=== PATIENT | male | born 1990 | race Caucasian/White ===

== ENCOUNTER 2019-11-29 13:00 | Emergency (ER) | payer SELFPAY ==
--- NOTE | 2019-11-29 13:08 | NUR ---
PATIENT LEFT WITHOUT BEING SEEN BY DR. GALVIN. NO FURTHER CARE PROVIDED FOR PATIENT.
== END 2019-11-29 13:08 | disposition left against medical advice (07) ==
LOC: MED 13:00
DX: Z53.21 Procedure and treatment not carried out due to patient leaving prior to being seen by health care provider (principal)

== ENCOUNTER 2019-11-30 10:01 | Inpatient (IN) | payer OTHER ==
[~2019-11-30] VITALS: Ht 180.3 cm; Wt 98.7 kg
[2019-11-30 10:10] VITALS: BP 162/92
[2019-11-30] MEDS ORDERED: NACL 0.9% 1,000 ML IV SCH (10:28)
--- NOTE | 2019-11-30 10:35 | NUR ---
C/O SUPRAPUBIC AND FLANK PAIN 06/30 WITH DYSURIA, CONSTIPATION, AND A COUPLE EPISODES OF NON-BLOODY VOMIT X TUESDAY. PT WAS REFERRED FROM URGENT CARE YESTERDAY FOR 2+ BLOOD IN URINE. PT REPORTS LAST BM 2 DAYS AGO. PT ADDS FEELING OF FREQUENCY BUT UNABLE TO ACTUALLY URINATE. BOWEL SOUNDS ACTIVE IN ALL 4 QUADRANTS. TENDER TO TOUCH IN SUPRAPUBIC AREA. DENIES SOB OR CP. PT ALERT AND AWAKE, HR TACHY AT 127, PT NON-DIAPHORETIC. PMH- DENIES
--- NOTE | 2019-11-30 10:35 | NUR ---
IV INSERTED AND LABS DRAWN BEDSIDE
--- NOTE | 2019-11-30 10:41 | NUR ---
XRAY AT BEDSIDE
--- NOTE | 2019-11-30 10:42 | NUR ---
LAB AT BEDSIDE FOR CULTURES
[2019-11-30] MEDS ORDERED: cefTRIAXone 500 MG VIAL ONE (10:45)
[2019-11-30] MEDS ORDERED: cefTRIAXone 1,000 MG VIAL ONE (10:46)
[2019-11-30 10:58] LABS: HEMATOCRIT 40.7 % (36-52); HEMOGLOBIN 13.6 g/dL (12.0-18.0); MEAN CORPUSCULAR HEMOGLOBIN 27 pg (27-31); MEAN CORPUSCULAR HGB CONC 34 g/dL (33-37); MEAN CORPUSCULAR VOLUME 81.8 fL (80-94); PLATELET COUNT (AUTO) 322 K/uL (140-450); RED BLOOD CELL COUNT(AUTO) 4.98 MIL/uL (4.20-6.10); WHITE BLOOD COUNT (AUTO) 20.1 K/uL (4.8-10.8)
--- NOTE | 2019-11-30 10:59 | NUR ---
ROCEPHIN IVBP STARTED
[2019-11-30 11:06] LABS: APPEARANCE,URINE CLOUDY (CLEAR); BILIRUBIN,URINE 1+ (NEGATIVE); BLOOD, URINE 3+ (NEGATIVE); COLOR,URINE DARK YELLOW (YELLOW); LEUKOCYTE ESTERASE ,URINE NEGATIVE (NEGATIVE); NITRITE, URINE NEGATIVE (NEGATIVE); UGLUCOSE NEGATIVE (NEGATIVE)
[2019-11-30 11:12] LABS: ALBUMIN 3.5 g/dL (3.4-5.0); CARBON DIOXIDE 28.7 mmol/L (21-32); CREATININE 0.9 mg/dL (0.7-1.3); TOTAL BILIRUBIN 1.5 mg/dL (0.0-1.0)
[2019-11-30 11:14] LABS: LYMPHOCYTES % (MANUAL) 9 % (20-46); MONOCYTES % (MANUAL) 6 % (5-12)
[2019-11-30 11:16] LABS: POTASSIUM 2.7 mmol/L (3.5-5.1)
[2019-11-30 11:19] LABS: HYALINE CASTS, URINE 0-10 /LPF (None Seen); WBC,URINE 0-5 /HPF (0-5)
[2019-11-30] MEDS ORDERED: MAG SULF 2000 MG/WATER PREMIX 50 ML IV ONE (11:30)
[2019-11-30] MEDS ORDERED: KCL 20 MEQ/WATER INJ PREMIX 100 ML IV ONE (11:30)
--- NOTE | 2019-11-30 11:42 | NUR ---
MAG JAYLIN STARTED
--- NOTE | 2019-11-30 11:52 | NUR ---
PT DISCONTINUED FROM MAGNESIUM FOR CT SCAN.
[2019-11-30] MEDS: NACL 0.9% 1,000 ML IV SCH (11:53)
[2019-11-30] MEDS ORDERED: ONDANSETRON 4 MG/2 ML VIAL IM/IVP PRN (11:55)
[2019-11-30] MEDS ORDERED: HYDROcodone/APAP 5/325 MG 1 TAB TAB PO PRN (11:55)
[2019-11-30] MEDS ORDERED: DOCUSATE SODIUM 100 MG GELCAP PO PRN (11:55)
[2019-11-30] MEDS ORDERED: MORPHINE SULFATE 2 MG/ML SYR IVP PRN (11:55)
[2019-11-30] MEDS ORDERED: ACETAMINOPHEN 325 MG TAB PO PRN (11:55)
--- NOTE | 2019-11-30 11:57 | NUR ---
PT RETURNED FROM CT
--- NOTE | 2019-11-30 12:17 | NUR ---
PAIN 6/10 PER PT, NADR
--- NOTE | 2019-11-30 12:17 | NUR ---
ORAL TEMP 101.6,DR CALDERA NOTIFIED
--- NOTE | 2019-11-30 12:22 | NUR ---
VERBAL ORDER FOR TYLENOL FROM DR CALDERA
[2019-11-30] MEDS ORDERED: ACETAMINOPHEN EXTRA STRENGTH 500 MG TAB PO PRN (12:25)
[2019-11-30 12:33] LABS: BARBITURATE, URINE NEG. ng/ml (NEG <=200); BENZODIAZEPINE, URINE NEG. ng/mL (NEG <=200); CANNABINOID, URINE POS. ng/mL (NEG <=50); COCAINE, URINE NEG. ng/mL (NEG <=300); OPIATE, URINE NEG. ng/mL (NEG <=2000); PHENCYCLIDINE SCREEN,URINE NEG. ng/mL (NEG <=25)
[2019-11-30 12:41] LABS: MAGNESIUM 2.3 mg/dL (1.8-2.4); PHOSPHORUS 2.5 mg/dL (2.5-4.9); PROTHROMBIN TIME 12.1 secs (10.8-13.4); THYROID STIMULATING HORMONE 0.53 uIU/mL (0.34-3.74)
--- NOTE | 2019-11-30 12:50 | NUR ---
Patient will be admitted to care of RENAN. Admited to TELE. Will go to [id number]. Belongings list completed. Report to PRINCESS MANNING. MAGNESIUM AND POTASSIUM RUNNING UPON ADMIT. TYLENOL ADMINISTERED PRIOR TO ADMIT FOR PTS FEVER PT HAS HIS PERSONAL BELONGINGS PT STATES HE WILL NOTIFY HIS OWN FAMILY AND PCP REGARDING ADMIT
[2019-11-30] MEDS ORDERED: POTASSIUM CHLORIDE 10 MEQ TABER PO SCH (13:00)
[2019-11-30] MEDS: metroNIDAZOLE 500 MG/NS PREMIX 100 ML IV SCH ×2 (13:29→21:03)
[2019-11-30 13:40] VITALS: BP 146/76
--- NOTE | 2019-11-30 13:42 | NUR ---
RECEIVED PATIENT FROM ED NURSE VIA EDY. AMBULATED TO THE ROOM. PATIENT IS AAOX4. RESPIRATIONS EVEN AND UNLABORED, ROOM AIR. VISIBLE CHEST RISE. ON TELE MONITORING. ABDOMEN SOFT AND NONTENDER. PATIENT C/O OF 4/10 SUPRAPUBIC PAIN AND FLANK PAIN. SKIN WARM AND INTACT. IV ON THE RIGHT HAND G 22 RUNNING KCI AT 68ML/HR. IV ON THE LEFT HAND G20 RUNNING MAGNESIUM. BOTH IV SITES ARE INTACT AND PATENT. PATIENT IS AMBULATORY. BED IN LOW POSITION. CALL LIGHT IS WITHIN REACH
--- NOTE | 2019-11-30 14:20 | NUR ---
GAVE LR BOLUS IN THE LEFT HAND IV. Addendum: 11/30/19 at 1654 by Princess Malia Espinosa RN PER MD TARANGO
[2019-11-30] MEDS ORDERED: KCL 20 MEQ/WATER INJ PREMIX 200 ML IV SCH (15:00)
[2019-11-30 16:00] VITALS: BP 145/91
[2019-11-30] MEDS ORDERED: POTASSIUM CHLORIDE 40 MEQ, LIDOCAINE 1% 25 MG in NACL 0.9% 250 ML IV SCH (16:30)
--- NOTE | 2019-11-30 16:49 | NUR ---
HANG KCI WITH LIDOCAINE FOR POTASSIUM LEVEL 2.7. EXPLAINED TO PATIENT INDICATIONS AND SIDE EFFECTS. PATIENT VERBALIZED UNDERSTANDING. WILL CONTINUE TO MONITOR. ANTOINETTE ABDALLA AT BEDSIDE
--- NOTE | 2019-11-30 16:50 | NUR ---
RECEIVED PATIENT FROM ED NURSE VIA [employer]. AMBULATED TO THE ROOM. PATIENT IS AAOX4. RESPIRATIONS EVEN AND UNLABORED, ROOM AIR. VISIBLE CHEST RISE. ON TELE MONITORING. ABDOMEN SOFT AND NONTENDER. PATIENT C/O OF 4/10 SUPRAPUBIC PAIN AND FLANK PAIN. SKIN WARM AND INTACT. IV ON THE RIGHT HAND G 22 RUNNING KCI AT 68ML/HR. IV ON THE LEFT HAND G20 RUNNING MAGNESIUM. BOTH IV SITES ARE INTACT AND PATENT. PATIENT IS AMBULATORY. BED IN LOW POSITION. CALL LIGHT IS WITHIN REACH. Addendum: 11/30/19 at 1653 by Princess Malia Espinosa RN WRONG TIME
--- NOTE | 2019-11-30 17:02 | NUR ---
PATIENT IS LAYING ON BED AT THIS TIME. DENIES PAIN. NO SIGNS OF DISTRESS NOTED. ANTOINETTE ABDALLA AT BEDSIDE
--- NOTE | 2019-11-30 18:24 | NUR ---
GIVEN ICE CHIPS ABOUT HALF OF THE STYROFOAM CUP. PATIENT IS AWARE THAT HE NEEDS BOWEL RESTED PER MD ORDER
--- NOTE | 2019-11-30 19:10 | NUR ---
ENDORSED PATIENT TO SUPERVISOR WHEEL SHOP NURSE. PATIENT IS IN STABLE CONDITION
[2019-11-30 19:16] LABS: ANION GAP 13.1 (8-16); CARBON DIOXIDE 27.2 mmol/L (21-32); CREATININE 0.7 mg/dL (0.7-1.3); POTASSIUM 3.3 mmol/L (3.5-5.1)
--- NOTE | 2019-11-30 19:30 | NUR ---
RECEIVED BEDSIDE REPORT FROM AM SHIFT RN FOR PT'S CONTINUITY OF CARE. PT IS AAOX4, WITH FAMILY MEMBERS AT BEDSIDE, AMBULATORY TO THE BATHROOM, IS ON ROOM AIR, ON TREE FELLER OPERATOR, HAS LEFT HAND 20 G SALINE LOCK, AND RIGHT HAND 22G WITH POTASSIUM IVF AT 68ML/HR, REPORTS TO HAVE SMALL AMOUNT OF BM WITH LIQUID CONSISTENCY, DENIES ANY PAIN, ONLY INTERMITTENT TOLERABLE PAIN. EXPLAINED TO PT THE PERINATAL EDUCATOR ROUTINE, PT VERBALIZED UNDERSTANDING. SAFETY MEASURES IN PLACE. PT'S NEEDS MET. WILL MONITOR PT THROUGHOUT SHIFT.
[2019-11-30 20:00] VITALS: BP 110/90
--- NOTE | 2019-11-30 21:03 | NUR ---
ADMINISTERED SCHEDULED IV ABX ORDERED. PT TEACHING GIVEN RE: MEDICATION AND SE. PT VERBALIZED UNDERSTANDING. STATES HE GETS INTERMITTENT MILD NAUSEA. REFUSED ANTI-NAUSEA MEDICATION. ENCOURAGED PT TO REPORT PAIN OR ANY N/V.
--- NOTE | 2019-11-30 23:30 | NUR ---
MADE ROUNDS. PT ASLEEP WITH NO SIGNS OF DISTRESS. WILL CONTINUE TO MONITOR PT.
[2019-12-01] VITALS: BP 144/92
--- NOTE | 2019-12-01 01:06 | NUR ---
MADE ROUNDS. PT ASLEEP WITH NO SIGNS OF DISTRESS. WILL CONTINUE TO MONITOR PT.
--- NOTE | 2019-12-01 03:30 | NUR ---
PT ASLEEP WITH NO SIGNS OF DISTRESS. WILL CONTINUE TO MONITOR PT.
[2019-12-01 04:00] VITALS: BP 151/93
[2019-12-01] MEDS: metroNIDAZOLE 500 MG/NS PREMIX 100 ML IV SCH ×3 (04:42→20:38)
[2019-12-01] MEDS: NACL 0.9% 1,000 ML IV SCH ×3 (04:42→20:38)
--- NOTE | 2019-12-01 04:45 | NUR ---
VS CHECKED AND CHARTED. ADMINISTERED SCHEDULED IVF AND IV ABX ORDERED. PT STATES GETS INTERMITTENT PAIN LASTING FOR 15 SECONDS AND GOES AWAY AFTER REPOSITIONING. PT'S NEEDS MET. WILL CONTINUE TO MONITOR PT.
[2019-12-01 06:07] LABS: T4 (THYROXINE) 9.6 ug/dL (4.5-12.0)
--- NOTE | 2019-12-01 06:30 | NUR ---
PT AWAKE. DENIES ANY PAIN AT THIS TIME. INFORMED PT REGARDING NPO STATUS, PT VERBALIZED UNDERSTANDING.
[2019-12-01 07:06] LABS: CHOL/HDL RATIO 4.9 (1-4.5)
--- NOTE | 2019-12-01 07:30 | NUR ---
RECEIVED REPORT FROM NIGHT NURSE, PT IS STABLE, AA0X4, RH 22G RUNNING NORMAL SALINE 60 ML/H, SAFETY MEASURES IN PLACE, INTRODUCE SELF, UPDATE WHITEBOARD, CALL LIGHT WITHIN REACH.
--- NOTE | 2019-12-01 07:30 | NUR ---
MD CHANGED PT'S DIET TO FULL LIQUID DIET. EXPLAINED TO PT NEW ORDER, AND PER PT, MD CAME IN AND INFORMED PT NO SX INDICATION FOR TODAY. ENDORSED PT TO AM SHIFT RN FOR PT'S CONTINUITY OF CARE.
[2019-12-01 08:00] VITALS: BP 145/89
--- NOTE | 2019-12-01 09:09 | NUR ---
PATIENT IS SCREENED AND CATEGORIZED MODERATE NUTRITION RISK. PATIENT WILL BE SEEN WITHIN 3-5 DAY OF ADMISSION. 12/02/2019-12/04/[address]
--- NOTE | 2019-12-01 10:00 | NUR ---
PT RESTING IN BED, PT IS STABLE, RESPIRATIONS ARE EVEN AND UNLABORED, FAMILY AT BEDSIDE, CALL LIGHT WITHIN REACH.
[2019-12-01 12:00] VITALS: BP 138/103
--- NOTE | 2019-12-01 12:00 | NUR ---
HANG ORDERED MEDICATION, EDUCATION GIVEN, PT VERBALIZE UNDERSTANDING, PT IS STABLE, RESPIRATIONS ARE EVEN AND UNLABORED, CALL LIGHT WITHIN REACH.
[2019-12-01 13:25] LABS: BASOPHILS % (AUTO) 0.3 % (0.0-2.0); EOSINOPHILS % (AUTO) 0.3 % (0.0-4.0); HEMATOCRIT 41.3 % (36-52); HEMOGLOBIN 13.6 g/dL (12.0-18.0); LYMPHOCYTES # (AUTO) 1.6 K/uL (2.0-11.5); LYMPHOCYTES % (AUTO) 13.1 % (20.5-51.1); MEAN CORPUSCULAR HEMOGLOBIN 27 pg (27-31); MEAN CORPUSCULAR HGB CONC 33 g/dL (33-37); MEAN CORPUSCULAR VOLUME 82.1 fL (80-94); MONOCYTES # (AUTO) 1.4 K/uL (0.8-1.0); MONOCYTES % (AUTO) 11.4 % (1.7-9.3); NEUTROPHILS % (AUTO) 74.9 % (42.2-75.2); PLATELET COUNT (AUTO) 313 K/uL (140-450); RED BLOOD CELL COUNT(AUTO) 5.03 MIL/uL (4.20-6.10); WHITE BLOOD COUNT (AUTO) 12.1 K/uL (4.8-10.8)
[2019-12-01 13:38] LABS: CARBON DIOXIDE 28.4 mmol/L (21-32); CREATININE 0.7 mg/dL (0.7-1.3); POTASSIUM 3.4 mmol/L (3.5-5.1)
--- NOTE | 2019-12-01 15:30 | NUR ---
PT IS RESTING IN BED, NO SIGNS OF DISTRESS NOTED, PT IS STABLE, CALL LIGHT WITHIN REACH.
[2019-12-01 16:00] VITALS: BP 156/101
[2019-12-01] MEDS ORDERED: POTASSIUM CHLORIDE 10 MEQ TABER PO SCH (16:17)
--- NOTE | 2019-12-01 19:31 | NUR ---
GAVE REPORT TO NIGHT NURSE, PT IS STABLE, NO SIGNS OF DISTRESS NOTED, CALL LIGHT WITHIN REACH.
[2019-12-01 20:00] VITALS: BP 165/52
[2019-12-01] MEDS ORDERED: CRUSHER, PILL MC ONE (20:18)
[2019-12-01] MEDS: amLODIPine 5 MG TAB PO SCH (20:35)
--- NOTE | 2019-12-01 20:40 | NUR ---
ADMINISTERED SCHEDULED PO AND IV ABX MEDICATIONS ORDERED. PT TOLERATED THEM WELL. PT'S NEEDS MET AT THIS TIME. WILL CONTINUE TO MONITOR PT.
--- NOTE | 2019-12-01 23:15 | NUR ---
PT AWAKE AND DENIES ANY PAIN. PT'S NEEDS MET AT THIS TIME.
[2019-12-02] VITALS: BP 152/95
--- NOTE | 2019-12-02 01:00 | NUR ---
MADE ROUNDS. PT LYING DOWN AWAKE, DENIES ANY PAIN AND NEEDS ARE MET. WILL CONTINUE TO MONITOR PT.
[2019-12-02 04:00] VITALS: BP 131/70
[2019-12-02] MEDS: metroNIDAZOLE 500 MG/NS PREMIX 100 ML IV SCH ×3 (04:45→20:34)
--- NOTE | 2019-12-02 04:45 | NUR ---
ADMINISTERED SCHEDULED IV ABX ORDERED. PT ASLEEP WITH NO SIGNS OF DISTRESS. WILL CONTINUE TO MONITOR PT.
--- NOTE | 2019-12-02 06:30 | NUR ---
PT LYING DOWN ASLEEP WITH NO SIGNS OF DISTRESS. WILL ENDORSE TO AM SHIFT RN FOR PT'S CONTINUITY OF CARE.
[2019-12-02 07:00] LABS: ANION GAP 10.7 (8-16); CARBON DIOXIDE 28.4 mmol/L (21-32); CREATININE 0.7 mg/dL (0.7-1.3); POTASSIUM 3.1 mmol/L (3.5-5.1)
--- NOTE | 2019-12-02 07:10 | NUR ---
RECEIVED REPORT FROM NIGHT NURSE, PT WAS ASLEEP BUT WOKE UP WHEN NURSES ENTERED HIS ROOM, PT IS AAOX4, INTRODUCE SELF, PT IS STABLE, RH22G RUNNING NS AT 100 ML/H, LH 20G SALINE LOCK, SAFETY MEASURES IN PLACE, CALL LIGHT WITHIN REACH.
[2019-12-02 07:39] LABS: BASOPHILS # (AUTO) 0.1 K/uL (0.00-0.22); BASOPHILS % (AUTO) 0.6 % (0.0-2.0); EOSINOPHILS # (AUTO) 0.1 K/uL (0-0.4); EOSINOPHILS % (AUTO) 1.5 % (0.0-4.0); HEMATOCRIT 39.6 % (36-52); LYMPHOCYTES # (AUTO) 1.7 K/uL (2.0-11.5); LYMPHOCYTES % (AUTO) 17.6 % (20.5-51.1); MEAN CORPUSCULAR HEMOGLOBIN 27 pg (27-31); MEAN CORPUSCULAR HGB CONC 33 g/dL (33-37); MEAN CORPUSCULAR VOLUME 83.2 fL (80-94); MONOCYTES # (AUTO) 1.1 K/uL (0.8-1.0); MONOCYTES % (AUTO) 11.9 % (1.7-9.3); NEUTROPHILS # (AUTO) 6.4 K/uL (1.8-7.7); NEUTROPHILS % (AUTO) 68.4 % (42.2-75.2); PLATELET COUNT (AUTO) 323 K/uL (140-450); RED BLOOD CELL COUNT(AUTO) 4.76 MIL/uL (4.20-6.10); RED CELL DISTRIBUTION WIDTH 13.8 % (11.6-13.7); WHITE BLOOD COUNT (AUTO) 9.4 K/uL (4.8-10.8)
[2019-12-02 08:00] VITALS: BP 134/80
[2019-12-02] MEDS: amLODIPine 5 MG TAB PO SCH (08:49)
--- NOTE | 2019-12-02 08:50 | NUR ---
GAVE PT ORDERED MEDIATION, EDUCATION GIVEN, PT TOLERATED WELL, PT IS STABLE, CALL LIGHT WITHIN REACH.
[2019-12-02] MEDS ORDERED: POTASSIUM CHLORIDE 40 MEQ, LIDOCAINE MPF 1% 25 MG in NACL 0.9% 250 ML IV SCH (10:00)
[2019-12-02] MEDS: NACL 0.9% 1,000 ML IV SCH (10:18)
--- NOTE | 2019-12-02 10:31 | NUR ---
HANG POTASSIUM, REMOVED RIGHT HAND IV IT WAS LEAKING, IV CANNULA INTACT, PT TOLERATED WELL. PT IS STABLE, FAMILY AT BEDSIDE, CALL LIGHT WITHIN REACH.
[2019-12-02 12:00] VITALS: BP 146/92
--- NOTE | 2019-12-02 12:30 | NUR ---
POTASSIUM STILL INFUSING AND UNABLE TO HANG OTHER MEDICATION. INFORM PT ABOUT THE WAIT, PT IS STABLE, CALL LIGHT WITHIN REACH.
--- NOTE | 2019-12-02 15:02 | NUR ---
PT SITTING IN BED AWAKE, ON HIS PHONE, NO SIGNS OF DISTRESS NOTED, CALL LIGHT WITHIN REACH.
--- NOTE | 2019-12-02 15:17 | NUR ---
DISCHARGE PLANNING: A 29 Y/O MALE PATIENT FROM HOME, WHO CAME IN DUE TO ABDOMINAL PAIN. NO PERTINENT MEDICAL HISTORY. INITIAL DIAGNOSIS OF SEPSIS AND UTI. CURRENT LABS INCLUDE WBC 9.4, H/H 13.0/39.6, NA/K 140/3.1. UDS POSITIVE FOR CANNABINOIDS. ON ROCEPHIN IV. BLOOD AND URINE C/S NORMAL. ID CONSULT WITH DR LAURENT FOR PELVIC ABSCESS. SURGICAL CONSULT WITH DR SANDERS FOR PELVIC ABSCESS. CHEST X RAY ON ADMISSION NEGATIVE. CT ABD/PELVIS SHOWED PROXIMAL SIGMOID COLITIS AND ADJACENT PELVIC ABSCESS, LOCALIZED CYSTITIS AND FATTY LIVER. DC PLAN TO HOME ONCE STABLE. Addendum: 12/03/19 at 0912 by Rylee Daniel CM RECEIVED AN ORDER FOR HIGHER LEVEL OF CARE FOR CT GUIDED DRAINGA Addendum: 12/03/19 at 0921 by Rylee Daniel CM CONT. CT GUIDED DRAINAGE OF PELVIC ABSCESS CONTACTED [facility] AT [phone], ABLE TO SPEAK TO [facility] REGARDING ORDER. HE STATED MIGUEL [phone] IS THE SENIOR UX DEVELOPER ASSIGNED TO THIS PATIENT. HE STATED HE WILL RELAY THE MESSAGE TO MIGUEL MARTINS. HE ALSO PROVIDED ME WITH THE FAX NUMBER [phone] TO SEND ORDER AND CLINICALS. ORDER AND CLINICALS FAXED TO THE PROVIDED NUMBER. CM TO FOLLOW UP. Addendum: 12/03/19 at 1014 by Rylee Daniel CM CONTACTED [facility] [phone], ABLE TO SPEAK TO MK REGARDING INQUIRY. HE STATED THEY DO NOT HAVE ANY BEDS AT THIS TIME BUT HE CAN TAKE PATIENT INFORMATION. HE ALSO PROVIDED ME FAX NUMBER [phone], TO SEND REFERRAL. [place] SENT. [place] [facility] [place] [facility] AND [facility]. [facility] WILL FOLLOW UP. Addendum: 12/03/19 at 1038 by Rylee Daniel CM PER CHARGE NURSE, PATIENT WENT AMA. [facility] AND [facility] MADE AWARE Addendum: 12/03/19 at 1040 by Rylee Daniel CM MIGUEL MARTINS AT [facility] MADE AWARE.
[2019-12-02 16:00] VITALS: BP 136/88
--- NOTE | 2019-12-02 19:14 | NUR ---
GAVE REPORT TO NIGHT NURSE FOR CONTINUITY OF CARE, PT STABLE.
--- NOTE | 2019-12-02 19:15 | NUR ---
RECEIVED PT ON BED, AAOX4, ABLE TO MAKE NEEDS KNOWN, DENIES ANY PAIN, TOLERATING SOFT DIET, IVF INFUSING WELL, PLAN OF CARE DISCUSSED, CALL LIGHT WITHIN REACH.
[2019-12-02 20:00] VITALS: BP 145/105
--- NOTE | 2019-12-02 20:35 | NUR ---
PT SITTING ON SIDE OF BED USING HIS CELLPHONE, DUE FLAGYL IVPB ADMINISTERED, ALL NEEDS ATTENDED.
--- NOTE | 2019-12-02 23:50 | NUR ---
PT WANTS TO TALKED TO RESIDENT ON DUTY, PT STATED PER DR LAURENT EARLIER THAT HE NEEDS TO BE TRANSFERRED TO ANOTHER HOSPITAL FOR DRAINAGE OF PELVIC ABSCESS, DR LANDRY TALKED TO PT, DR LANDRY WILL LET THE AM DOCTORS FOLLOW UP AM LAB RESULTS AND THEY WILL DISCUSS IT WITH DR LAURENT IN THE MORNING, PT VERBALIZED UNDERSTANDING.
[2019-12-03] VITALS: BP 144/89
[2019-12-03 04:00] VITALS: BP 122/82
--- NOTE | 2019-12-03 04:00 | NUR ---
PT SLEEPING, EASILY AROUSABLE, VITAL SIGNS STABLE, SB ON TELE WHEN SLEEPING, ASYMPTOMATIC, DENIES ANY PAIN, NO SOB NOTED, MONITORED CLOSELY.
[2019-12-03] MEDS: metroNIDAZOLE 500 MG/NS PREMIX 100 ML IV SCH (04:45)
[2019-12-03 06:24] LABS: BASOPHILS % (AUTO) 0.5 % (0.0-2.0); EOSINOPHILS # (AUTO) 0.2 K/uL (0-0.4); HEMATOCRIT 41.3 % (36-52); HEMOGLOBIN 13.5 g/dL (12.0-18.0); LYMPHOCYTES # (AUTO) 1.8 K/uL (2.0-11.5); LYMPHOCYTES % (AUTO) 21.5 % (20.5-51.1); MEAN CORPUSCULAR HEMOGLOBIN 27 pg (27-31); MEAN CORPUSCULAR HGB CONC 33 g/dL (33-37); MEAN CORPUSCULAR VOLUME 82.6 fL (80-94); MONOCYTES # (AUTO) 0.9 K/uL (0.8-1.0); MONOCYTES % (AUTO) 10.5 % (1.7-9.3); NEUTROPHILS # (AUTO) 5.3 K/uL (1.8-7.7); NEUTROPHILS % (AUTO) 64.5 % (42.2-75.2); PLATELET COUNT (AUTO) 354 K/uL (140-450); RED BLOOD CELL COUNT(AUTO) 5.01 MIL/uL (4.20-6.10); RED CELL DISTRIBUTION WIDTH 14.1 % (11.6-13.7); WHITE BLOOD COUNT (AUTO) 8.2 K/uL (4.8-10.8)
[2019-12-03] MEDS: NACL 0.9% 1,000 ML IV SCH (06:46)
[2019-12-03 06:55] LABS: ANION GAP 11.3 (8-16); CARBON DIOXIDE 28.1 mmol/L (21-32); CREATININE 0.8 mg/dL (0.7-1.3); POTASSIUM 3.4 mmol/L (3.5-5.1)
--- NOTE | 2019-12-03 06:56 | NUR ---
DR HARRISON TALKING TO PT AT BEDSIDE, MOTTLE LAY UP OPERATOR CHECKED THE VITAL SIGNS:BP-144/101, HR-101, DR MORALES MADE AWARE, PT DENIES ANY PAIN BUT FEELING ANXIOUS OF BRING TRANSFERRED TO ANOTHER FACILITY, WILL CLOSELY MONITOR.
--- NOTE | 2019-12-03 07:22 | NUR ---
PT AWAKE, NO DISTRESS NOTED, BEDSIDE REPORT GIVEN TO NIGEL HACKETT FOR CONTINUITY OF CARE.
--- NOTE | 2019-12-03 07:44 | NUR ---
RECEIVED REPORT FROM NIGHT NURSE FOR CONTINUITY OF CARE. PT IS STABLE AA0X4. IV IN THE RIGHT HAND 22G RUNNING NORMAL SALINE @ 60ML/HR. PT AMBULATORY. ABLE TO MAKE NEEDS KNOWN. SAFETY MEASURES IN PLACE,. INTRODUCED SELF TO PT AND DISCUSSED POC, PT VERBALIZED UNDERSTANDING. UPDATED WHITEBOARD. CALL LIGHT WITHIN REACH, WILL ROUND FREQUENTLY ON PT.
--- NOTE | 2019-12-03 08:37 | NUR ---
ADMINISTERED MORNING MEDS TO PT. PT TOLERATED WELL. IV ROCEPHIN INFUSING. PT WILL LEAVE AMA AFTER IV MED IS DONE INFUSING.
[2019-12-03] MEDS: amLODIPine 5 MG TAB PO SCH (08:45)
[2019-12-03] MEDS ORDERED: ASCO1CAP75 PO (09:14)
[2019-12-03] MEDS ORDERED: CIPR500T4 PO (09:15)
[2019-12-03] MEDS ORDERED: METR500T1 PO (09:20)
--- NOTE | 2019-12-03 09:35 | NUR ---
PT LEFT AMA. PT SIGNED AMA FORM. 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 PT WAS INSTRUCTED TO GO TO THE NEAREST EMERGENCY ROOM IF SYMPTOMS WORSEN. PT VERBALIZED UNDERSTANDING. PT PRESCRIPTIONS SENT TO PREFERRED PHARMACY. PT TOOK ALL PERSONAL BELONGINGS WITH HIM. PT IV REMOVED WITH TIP INTACT. PT LEFT IN STABLE CONDITION ACCOMPANIED BY HIS MOTHER.
[2019-12-04 07:07] LABS: CHLAMYDIA TRACHOMATIS AMP DNA Negative (Negative)
== END 2019-12-03 09:35 | disposition left against medical advice (07) | DRG 871 ==
LOC: MED 10:01 → MTU 11:53
PROVIDERS: ADMIT General Practice; ATTEND General Practice
DX: A41.9 Sepsis, unspecified organism (principal); K65.1 Peritoneal abscess; K57.20 Diverticulitis of large intestine with perforation and abscess without bleeding; E87.6 Hypokalemia; N30.90 Cystitis, unspecified without hematuria; K52.9 Noninfective gastroenteritis and colitis, unspecified; I10 Essential (primary) hypertension; Z53.29 Procedure and treatment not carried out because of patient's decision for other reasons
CPT/HCPCS: 36415; 71045; 80048; 80053; 80305; 81001; 83036; 83605; 83735; 83880; 84100; 84436; 84443; 85025; 85610; 85730; 87040; 87081; 87086; 87491; 93005; 96365; 99291; J0696; J2001; J3475; J3480; J3490; J7030; J7060; J7120; Q0092